=== PATIENT | male | born 1945 | race Caucasian/White ===

== ENCOUNTER → 2024-06-02 12:04 | Outpatient (REF) | payer MEDICARE, OTHER, SELFPAY ==
[2024-06-02 17:07] LABS: Blood Urea Nitrogen 25 mg/dl (9-20); Calcium 9.5 mg/dl (8.4-10.2); Carbon Dioxide 27 mmol/L (22-30); Chloride 100 mmol/L (98-107); Glucose 165 mg/dl (70-99); Potassium 4.7 mmol/L (3.5-5.1); Sodium 137 mmol/L (135-145); eGFR 47.06
[2024-06-02 17:39] LABS: PSA, Total - Diagnostic 0.16 ng/ml (0.0-4.0)
== END ==
LOC: HWLAB 12:04
PROVIDERS: ATTENDING PHYSICIAN Urology; FAMILY PHYSICIAN Internal Medicine; REFERRING PHYSICIAN Specialist
DX: C61 Malignant neoplasm of prostate (principal); R35.1 Nocturia; N39.41 Urge incontinence
CPT/HCPCS: 36415; 80048; 84153

== ENCOUNTER → 2024-11-30 07:45 | Outpatient (REF) | payer MEDICARE, OTHER, SELFPAY | LOC: RCS 07:45 | PROVIDERS: ATTENDING PHYSICIAN Internal Medicine Cardiovascular Disease; FAMILY PHYSICIAN Internal Medicine | DX: I25.10 Atherosclerotic heart disease of native coronary artery without angina pectoris (principal); Z95.2 Presence of prosthetic heart valve | CPT/HCPCS: 93306 ==